=== PATIENT | male | born 2000 | race Caucasian/White ===

== ENCOUNTER 2022-11-10 20:02 | Observation (INO) ==
[2022-11-10] MEDS ORDERED: ONDANSETRON INJ 2 MG/ML 2 ML VIAL IV STA ×2 (20:20→22:00)
--- NOTE | 2022-11-10 20:24 | Emergency Department Note ---
Impression & Plan Complaint of paresthesia, Abdominal pain, Vomiting ED Provider Note NAME: JUHI ALEXANDRA AGE: 22 SEX: M : 2000 ARRIVES VIA: Walk-In INFORMANT: Patient ED PROVIDER(S): Cristopher Lomas DO CHIEF COMPLAINT: blurry vision, paraesthesia and vomiting HPI: Patient is a 22-year-old male with no significant past medical history the presents the ER for blurry vision and paresthesias referred in by [facility]. He notes today some around 3:00 he started having paresthesias on the palmar surface of his arms. He was initially on the palmar surface of his left arm and then went to his right arm and then he had on his left torso. This lasted for 2 minutes at a time. With this he had associated some blurry vision which was present for about an hour. He denies any headache or neck pain. He was lifting prior to this when this occurred. No chest pain or shortness of breath. He did have an episode of nausea and vomiting. No dysuria, urgency, or frequency. He denies any true numbness but had paresthesias in his upper extremities and torso. He has never had this before. He notes everything has completely resolved at this time. No other exacerbating or remitting factors. PAST MEDICAL HISTORY:See Below PAST SURGICAL HISTORY:See Below FAMILY HISTORY:See Below SOCIAL HISTORY:See Below HOME MEDICATIONS:See Below ALLERGIES:See Below VITALS:See Below PHYSICAL EXAMINATION: GENERAL: Sitting up in bed, alert, well appearing, well nourished, no distress, non-toxic EYE EXAM: normal conjunctiva. PERRL and EOM's intact. OROPHARYNX: no exudate, no erythema, lips, buccal mucosa, and tongue normal and mucous membranes are moist NECK: supple, no nuchal rigidity, no adenopathy, non-tender LUNGS: Clear to auscultation. Normal chest wall mechanics HEART: no murmurs, S1 normal and S2 normal ABDOMEN: abdomen soft, non-tender, normo-active bowel sounds, no masses, no rebound or guarding. BACK: Back is symmetrical on inspection and there is no deformity, no midline tenderness, no CVA tenderness. UPPER EXTREMITIES: upper extremities are grossly normal. LOWER EXTREMITIES: No pitting edema. NEURO EXAM: Normal sensorium, cranial nerves II-XII intact, normal speech, no weakness of arms, no weakness of legs. No drift. Finger to nose intact. Gross sensation intact. [id number] intact. Rapid alternating movements of upper extremities intact. MEDICAL DECISION MAKING: Patient is a 22-year-old male who presents to the ER initially for paresthesias which were migratory from the left arm on the palmar side to the right arm and elbow on the left torso consequently came in with some blurry vision. He denied any headache. No neck pain. No chest pain or shortness of breath. He did have 1 episode of nausea and vomiting prior to coming in. No other complaints at this time. He does note that he was drinking a fair amount of alcohol last night and consequently drank about a gallon of water today. CTAs of the head and neck were obtained and unremarkable. The blurry vision and paresthesias have abated. He has no chest pain or shortness of breath. During examination he started to have persistent vomiting. He denies any belly pain. He was given Zofran 4 mg x 2 this was followed by IV Reglan and Phenergan. He became slightly confused after the Phenergan. He is oriented to person but confused to the year. He was given IV fluids due to the elevated CK. CT abdomen pelvis was then obtained and was unremarkable. Discussed with dad who is at bedside in regards to him being slightly confused at this point. Do favor its best to watch him overnight on hospital and consequently discussed with Dr. Camden Mejia for further evaluation. No signs of meningitis or encephalitis on exam. external records were reviewed. Triage Nursing notes reviewed. Limited review of prior medical records performed Vital Signs: reviewed and remarkable for no significant abnormalities Differential diagnosis: Differential Diagnosis includes but is not limited to ischemic Stroke, hemorrhagic stroke, bells palsy, mass, neoplasm, migraine headache, seizure, subarachnoid hemorrhage, TIA, and transient global amnesia. ER treatment provided: See below Diagnostics interpreted by me include EKG and cardiac monitoring as listed below: -Cardiac Monitoring: An order was placed for continuous cardiac monitoring. The monitor shows a rate of 80 with sinus rhythm. -ECG: none -Laboratory studies:Interpreted by me as stated above in MDM and shown below. Imaging studies: Xrays: As interpreted by me: Portable AP upright 1 view chest unremarkable CTs show: CT angios of the head and neck were negative CT Abdo pelvis is unremarkable Consultation(s): Discussed with Dr. Camden Mejia for further evaluation Procedures:none Critical Care: None Past Med/Surg History Social History Smoking Status: Current every day smoker Preferred Language: Burmese Feels Safe at Home: Yes Allergies Allergies Allergy/AdvReac Type Severity Reaction Status Date / Time No Known Allergies Allergy Verified 11/10/22 20:24 Home Meds Previous Rx's Medication Instructions Recorded ondansetron 4 mg disintegrating 4 mg PO Q8H PRN nausea and 11/11/22 tablet vomiting 5 days #15 tabs Results & Data (ED) Vital Signs Vital Signs - 24 hr 11/10/22 20:05 11/11/22 00:50 11/10/22 22:30 Temperature 35.9 C L Temperature Source Temporal Artery Scan Pulse Rate 75 Pulse Rate [Finger] 82 72 Respiratory Rate 18 18 20 Respiratory Depth Normal Blood Pressure 129/70 Blood Pressure [Right Arm] 112/55 L 109/49 L Blood Pressure Mean 89 Blood Pressure Mean [Right Arm] 74 69 Pulse Oximetry 100 99 97 Oxygen Delivery Method Room Air Room Air Room Air Sepsis Recent Fever Within 48 Hours No Sepsis New/Unexplained Change in Mental Status N/A Sepsis Action Taken by Nursing No Action Required Laboratory Data 11/10/22 20:39 11/10/22 20:39 Lab Results 11/10/22 11/10/22 11/10/22 Range/Units 20:27 20:39 20:39 WBC 9.92 (4.8-10.8) K/ul RBC 5.17 (4.63-6.08) M/uL Hgb 15.4 (14.0-18.0) g/dl Hct 45.2 (40.1-51.0) % MCV 87.4 (80.0-100.0) fL MCH 29.8 (25.0-34.0) pg MCHC 34.1 (32.0-36.0) g/dL RDW Std Deviation 41.6 (36.4-46.3) fL RDW Coeff of Rell 12.9 (11.5-14.5) % Plt Count 252 (130-400) K/uL MPV 9.8 (9.4-12.4) fL Immature Gran % (Auto) 0.5 % Neut % (Auto) 68.9 % Lymph % (Auto) 24.2 % [place] % (Auto) 5.5 % Eos % (Auto) 0.5 % Baso % (Auto) 0.4 % Neut # (Auto) 6.83 H (1.4-6.5) K/uL Lymph # (Auto) 2.40 (1.2-3.4) K/uL [place] # (Auto) 0.55 (0.24-0.82) K/uL Eos # (Auto) 0.05 (0-0.50) K/uL Baso # (Auto) 0.04 (0-0.2) K/uL Immature Gran # (Auto) 0.05 H (0.00-0.02) K/uL PT 11.9 (9.0-12.0) Seconds INR 1.1 (0.9-1.1) APTT 25.0 (21.0-31.0) Seconds PTT Ratio 0.9 Sodium (136-145) mmol/L Potassium (3.5-5.1) mmol/L Chloride (98-107) mmol/L Carbon Dioxide (21-32) mmol/L Anion Gap (3-11) BUN (6-23) mg/dl Creatinine (0.6-1.4) mg/dl Est Cr Clr Drug Dosing ml/min Est GFR ( Amer) ml/min Est GFR (Non-Af Amer) ml/min BUN/Creatinine Ratio (10-20) Glucose (70-99(Fasting)) mg/dl POC Glucose 125 H (70-99) mg/dl Calcium (8.5-10.1) mg/dl Magnesium (1.7-2.4) mg/dl Total Bilirubin (0.2-1.0) mg/dl AST (13-39) U/L ALT (7-52) U/L Alkaline Phosphatase (34-104) U/L Total Creatine Kinase (30-223) U/L Troponin I High Sens (0-20) pg/ml Total Protein (6.0-8.3) gm/dl Albumin (3.4-5.0) gm/dl Globulin (2.5-4.0) gm/dl Albumin/Globulin Ratio (0.9-2) SARS-CoV-2, RNA, NAAT (NEGATIVE) 11/10/22 11/10/22 11/11/22 Range/Units 20:39 20:39 00:36 WBC (4.8-10.8) K/ul RBC (4.63-6.08) M/uL Hgb (14.0-18.0) g/dl Hct (40.1-51.0) % MCV (80.0-100.0) fL MCH (25.0-34.0) pg MCHC (32.0-36.0) g/dL RDW Std Deviation (36.4-46.3) fL RDW Coeff of Rell (11.5-14.5) % Plt Count (130-400) K/uL MPV (9.4-12.4) fL Immature Gran % (Auto) % Neut % (Auto) % Lymph % (Auto) % [place] % (Auto) % Eos % (Auto) % Baso % (Auto) % Neut # (Auto) (1.4-6.5) K/uL Lymph # (Auto) (1.2-3.4) K/uL [place] # (Auto) (0.24-0.82) K/uL Eos # (Auto) (0-0.50) K/uL Baso # (Auto) (0-0.2) K/uL Immature Gran # (Auto) (0.00-0.02) K/uL PT (9.0-12.0) Seconds INR (0.9-1.1) APTT (21.0-31.0) Seconds PTT Ratio Sodium 139 (136-145) mmol/L Potassium 3.5 (3.5-5.1) mmol/L Chloride 103 (98-107) mmol/L Carbon Dioxide 26 (21-32) mmol/L Anion Gap 10 (3-11) BUN 20 (6-23) mg/dl Creatinine 0.88 (0.6-1.4) mg/dl Est Cr Clr Drug Dosing 145.7 ml/min Est GFR ( Amer) 142.3 ml/min Est GFR (Non-Af Amer) 122.8 ml/min BUN/Creatinine Ratio 22.7 H (10-20) Glucose 141 H (70-99(Fasting)) mg/dl POC Glucose (70-99) mg/dl Calcium 9.0 (8.5-10.1) mg/dl Magnesium 1.9 (1.7-2.4) mg/dl Total Bilirubin 0.6 (0.2-1.0) mg/dl AST 35 (13-39) U/L ALT 27 (7-52) U/L Alkaline Phosphatase 139 H (34-104) U/L Total Creatine Kinase 571 H Cancelled (30-223) U/L Troponin I High Sens 4.1 (0-20) pg/ml Total Protein 7.0 (6.0-8.3) gm/dl Albumin 4.3 (3.4-5.0) gm/dl Globulin 2.7 (2.5-4.0) gm/dl Albumin/Globulin Ratio 1.6 (0.9-2) SARS-CoV-2, RNA, NAAT NEGATIVE (NEGATIVE) Administered Medications Discontinued Medications Sodium Chloride (Nss 1000ml) 2,000 mls @ 999 mls/hr IV .Q2H1M ONE Stop: 11/10/22 23:56 Last Infusion: 11/11/22 00:54 Dose: 0 mls/hr Documented By: Admin: 11/10/22 22:16 Dose: 999 mls/hr Documented By: RICO Promethazine HCl (Phenergan) 25 mg in 51 mls @ 204 mls/hr IV NOW STA Stop: 11/10/22 23:06 Last Infusion: 11/11/22 00:54 Dose: 0 mls/hr Documented By: Admin: 11/10/22 23:03 Dose: 204 mls/hr Documented By: RICO Ioversol (Optiray 320 500ml) 117 ml IV ONCE ONE Stop: 11/10/22 20:44 Last Admin: 11/10/22 20:43 Dose: 117 ml Documented By: ARCENIO Ioversol (Optiray 350 100ml) 89 ml IV ONCE ONE Stop: 11/10/22 23:37 Last Admin: 11/10/22 23:37 Dose: 89 ml Documented By: ARCENIO Metoclopramide HCl (Metoclopramide Hcl Inj 5 Mg/Ml 2 Ml Vial) 10 mg IV NOW STA Stop: 11/10/22 22:27 Last Admin: 11/10/22 22:29 Dose: 10 mg Documented By: RAJ Ondansetron HCl (Ondansetron Inj 2 Mg/Ml 2 Ml Vial) 4 mg IV NOW STA Stop: 01/21/23 20:21 Last Admin: 11/10/22 20:35 Dose: 4 mg Documented By: RICO Ondansetron HCl (Ondansetron Inj 2 Mg/Ml 2 Ml Vial) 4 mg IV NOW STA Stop: 11/10/22 22:01 Last Admin: 11/10/22 22:16 Dose: 4 mg Documented By: RICO Imaging Data Radiologist's Impression: Chest X-Ray 11/10/22 20:20 XR chest 1V portable CLINICAL HISTORY: neuro deficit, acute stroke suspected TECHNIQUE: Single frontal radiograph of the chest was obtained. Comparison: None available at the time of this dictation. FINDINGS: No lines and tubes are seen. The cardiomediastinal silhouette is normal. The lungs are clear. No evidence of pleural effusion or pneumothorax. IMPRESSION: No acute chest disease. ACT 112: Negative or not required by law. Electronically signed by: Vic Esqueda M.D. 11/10/2022 8:[address] 11/10/22 20:20 CT angio head w con, CT head/brain wo con, CT angio neck with con CLINICAL HISTORY: neuro deficit, acute stroke suspected TECHNIQUE: Contiguous axial CT images of the head were acquired from the base of the skull to the vertex without intravenous contrast administration. CT angiography of the head and neck was performed following intravenous administration of iodinated contrast. Coronal and sagittal MIPS were obtained from the axial data set and were submitted for review. Automated dose lowering techniques and/or adjustment according to patient size were utilized for this examination. All measurements were calculated based on NASCET criteria. Comparison: None available at the time of this dictation. FINDINGS: CT head: There is no acute intracranial hemorrhage or evidence of acute territorial infarction. No shift of the midline structures, mass effect, or extra-axial abnormalities are shown. Lungs and soft tissues are unremarkable. CTA Neck: A 3 vessel aortic arch is shown. There is no significant atherosclerotic plaque in the aortic arch or the origins of the innominate, left common carotid, and left subclavian arteries. The common carotid, external carotid, cervical segments of the internal carotid arteries, and the cervical segments of the vertebral arteries are patent without hemodynamically significant stenosis. The left vertebral artery is dominant. CTA Head: The anterior and posterior cerebral circulations are patent. origin of the right posterior cerebral artery is seen. IMPRESSION: 1. No acute intracranial hemorrhage, evidence of acute territorial infarction, or other acute intracranial disease process. 2. No occlusion, hemodynamically significant stenosis, or dissection in the major cervical arteries. 3. No occlusion, hemodynamically significant stenosis, aneurysm, dissection, or arteriovenous malformation in the major intracranial arteries. Assessment of stenosis of the internal carotid arteries is based on NASCET criteria. ACT 112: Negative or not required by law. Electronically signed by: Vic Esqueda M.D. 11/10/2022 9:10 PM Head CTA 11/10/22 20:20 CT angio head w con, CT head/brain wo con, CT angio neck with con CLINICAL HISTORY: neuro deficit, acute stroke suspected TECHNIQUE: Contiguous axial CT images of the head were acquired from the base of the skull to the vertex without intravenous contrast administration. CT angiography of the head and neck was performed following intravenous administration of iodinated contrast. Coronal and sagittal MIPS were obtained from the axial data set and were submitted for review. Automated dose lowering techniques and/or adjustment according to patient size were utilized for this examination. All measurements were calculated based on NASCET criteria. Comparison: None available at the time of this dictation. FINDINGS: CT head: There is no acute intracranial hemorrhage or evidence of acute territorial infarction. No shift of the midline structures, mass effect, or extra-axial abnormalities are shown. Lungs and soft tissues are unremarkable. CTA Neck: A 3 vessel aortic arch is shown. There is no significant atherosclerotic plaque in the aortic arch or the origins of the innominate, left common carotid, and left subclavian arteries. The common carotid, external carotid, cervical segments of the internal carotid arteries, and the cervical segments of the vertebral arteries are patent without hemodynamically significant stenosis. The left vertebral artery is dominant. CTA Head: The anterior and posterior cerebral circulations are patent. origin of the right posterior cerebral artery is seen. IMPRESSION: 1. No acute intracranial hemorrhage, evidence of acute territorial infarction, or other acute intracranial disease process. 2. No occlusion, hemodynamically significant stenosis, or dissection in the major cervical arteries. 3. No occlusion, hemodynamically significant stenosis, aneurysm, dissection, or arteriovenous malformation in the major intracranial arteries. Assessment of stenosis of the internal carotid arteries is based on NASCET criteria. ACT 112: Negative or not required by law. Electronically signed by: Vic Esqueda M.D. 11/10/2022 9:10 PM Neck CTA 11/10/22 20:20 CT angio head w con, CT head/brain wo con, CT angio neck with con CLINICAL HISTORY: neuro deficit, acute stroke suspected TECHNIQUE: Contiguous axial CT images of the head were acquired from the base of the skull to the vertex without intravenous contrast administration. CT angiography of the head and neck was performed following intravenous administration of iodinated contrast. Coronal and sagittal MIPS were obtained from the axial data set and were submitted for review. Automated dose lowering techniques and/or adjustment according to patient size were utilized for this examination. All measurements were calculated based on NASCET criteria. Comparison: None available at the time of this dictation. FINDINGS: CT head: There is no acute intracranial hemorrhage or evidence of acute territorial infarction. No shift of the midline structures, mass effect, or extra-axial abnormalities are shown. Lungs and soft tissues are unremarkable. CTA Neck: A 3 vessel aortic arch is shown. There is no significant atherosclerotic plaque in the aortic arch or the origins of the innominate, left common carotid, and left subclavian arteries. The common carotid, external carotid, cervical segments of the internal carotid arteries, and the cervical segments of the vertebral arteries are patent without hemodynamically significant stenosis. The left vertebral artery is dominant. CTA Head: The anterior and posterior cerebral circulations are patent. origin of the right posterior cerebral artery is seen. IMPRESSION: 1. No acute intracranial hemorrhage, evidence of acute territorial infarction, or other acute intracranial disease process. 2. No occlusion, hemodynamically significant stenosis, or dissection in the major cervical arteries. 3. No occlusion, hemodynamically significant stenosis, aneurysm, dissection, or arteriovenous malformation in the major intracranial arteries. Assessment of stenosis of the internal carotid arteries is based on NASCET criteria. ACT 112: Negative or not required by law. Electronically signed by: Vic Esqueda M.D. 11/10/2022 9:10 PM Discharge Plan Visit Data Chief Complaint: Neuro Symptoms/Deficit Stated Complaint: BLURRY VISION, LEFT SIDED WEAKNESS, NUMBNESS ED Provider: Cristopher Lomas Discharge Problem: Complaint of paresthesia, Abdominal pain, Vomiting Patient Disposition: Home - Self-Care Discharge Instructions Michael/Other Patient Handouts: ED Paraesthesias, ED [facility] Vomiting Activity Restrictions/Additional Instructions: Please follow up with your primary care doctor with in the next 24 hours. Any worsening of your symptoms, please return to the ED immediately. This includes any fevers greater than 100.4, worsening pain, chest pain, shortness breath, persistent nausea, vomiting, unable to eat or drink, or any other concerning signs or symptoms from your standpoint. You were given medications during this visit that will inhibit your ability to drive, operate machinery and work. Please do NOT drive, operate machinery, drink alcohol or work for the next 12hrs. You were found to have a blood pressure greater than 120 systolic over 90 diastolic. Due to the new Medicare guidelines, we are now recommending that you follow up with your primary care doctor in regards to this elevated blood pres sure. Please take Zofran as needed needed for nausea vomiting. Forms Stand Alone Forms: My [facility], Virtual Emergency Department, Important Visit Information Prescriptions Prescriptions: New ondansetron 4 mg tablet,disintegrating 4 mg PO Q8H PRN (Reason: nausea and vomiting) 5 Days Qty: 15 0RF Referrals Referrals: PCP,NO [Primary Care Provider] -
[2022-11-10] MEDS ORDERED: OPTIRAY 320 500ml IV ONE (20:43)
--- NOTE | 2022-11-10 20:51 | XRay Report ---
XR chest 1V portable CLINICAL HISTORY: neuro deficit, acute stroke suspected TECHNIQUE: Single frontal radiograph of the chest was obtained. Comparison: None available at the time of this dictation. FINDINGS: No lines and tubes are seen. The cardiomediastinal silhouette is normal. The lungs are clear. No evid ence of pleural effusion or pneumothorax. IMPRESSION: No acute chest disease. ACT 112: Negative or not required by law. Electronically signed by: Vic Esqueda M.D. 11/10/2022 8:49 PM
--- NOTE | 2022-11-10 21:12 | CT Scan Report ---
CT angio head w con, CT head/brain wo con, CT angio neck with con CLINICAL HISTORY: neuro deficit, acute stroke suspected TECHNIQUE: Contiguous axial CT images of the head were acquired from the base of the skull to the martinez isaura without intravenous contrast administration. CT angiography of the head and neck was performed f ollowing intravenous administration of iodinated contrast. Coronal and sagittal MIPS were obtained fr om the axial data set and were submitted for review. Automated dose lowering techniques and/or adjus tment according to patient size were utilized for this examination. All measurements were calculated based on NASCET criteria. Comparison: None available at the time of this dictation. FINDINGS: CT head: There is no acute intracranial hemorrhage or evidence of acute territorial infarction. No sh ift of the midline structures, mass effect, or extra-axial abnormalities are shown. Lungs and soft tissues are unremarkable. CTA Neck: A 3 vessel aortic arch is shown. There is no significant atherosclerotic plaque in the aor tic arch or the origins of the innominate, left common carotid, and left subclavian arteries. The c ommon carotid, external carotid, cervical segments of the internal carotid arteries, and the cervical segments of the vertebral arteries are patent without hemodynamically significant stenosis. The left vertebral artery is dominant. CTA Head: The anterior and posterior cerebral circulations are patent. origin of the right pos terior cerebral artery is seen. IMPRESSION: 1. No acute intracranial hemorrhage, evidence of acute territorial infarction, or other acute intrac ranial disease process. 2. No occlusion, hemodynamically significant stenosis, or dissection in the major cervical arteries. 3. No occlusion, hemodynamically significant stenosis, aneurysm, dissection, or arteriovenous malfor mation in the major intracranial arteries. Assessment of stenosis of the internal carotid arteries is based on NASCET criteria. ACT 112: Negative or not required by law. Electronically signed by: Vic Esqueda M.D. 11/10/2022 9:10 PM
[2022-11-10 21:16] LABS: Basophils # (auto) 0.04 K/uL (0-0.2); Basophils % (auto) 0.4 %; Eosinophils # (auto) 0.05 K/uL (0-0.50); Eosinophils % (auto) 0.5 %; Hematocrit (blood only) 45.2 % (40.1-51.0); Hemoglobin 15.4 g/dl (14.0-18.0); Immature Granulocytes # (auto) 0.05 K/uL (0.00-0.02); Immature Granulocytes % (auto) 0.5 %; Lymphocytes % (auto) 24.2 %; Mean Corpuscular Hemoglobin 29.8 pg (25.0-34.0); Mean Corpuscular Hgb Conc 34.1 g/dL (32.0-36.0); Mean Corpuscular Volume 87.4 fL (80.0-100.0); Mean Platelet Volume 9.8 fL (9.4-12.4); Monocytes # (auto) 0.55 K/uL (0.24-0.82); Monocytes % (auto) 5.5 %; Neutrophils # (auto) 6.83 K/uL (1.4-6.5); Neutrophils % (auto) 68.9 %; Platelet Count 252 K/uL (130-400); RDW Coefficient of Variation 12.9 % (11.5-14.5); RDW Standard Deviation 41.6 fL (36.4-46.3); Red Blood Count 5.17 M/uL (4.63-6.08); White Blood Count 9.92 K/ul (4.8-10.8)
[2022-11-10 21:17] LABS: INR 1.1 (0.9-1.1); Partial Thromboplastin Ratio 0.9; Prothrombin Time 11.9 Seconds (9.0-12.0)
[2022-11-10 21:36] LABS: Troponin I High Sensitivity 4.1 pg/ml (0-20)
[2022-11-10 21:50] LABS: Albumin Globulin Ratio 1.6 (0.9-2); Albumin Level 4.3 gm/dl (3.4-5.0); BUN Creatinine Ratio 22.7 (10-20); Bilirubin,Total 0.6 mg/dl (0.2-1.0); Creatinine Clr Calc Pharmacy 145.7 ml/min; Est GFR (African American) 142.3 ml/min; Est GFR (Non-African American) 122.8 ml/min; Globulin 2.7 gm/dl (2.5-4.0); Magnesium 1.9 mg/dl (1.7-2.4); Potassium 3.5 mmol/L (3.5-5.1)
[2022-11-10] MEDS ORDERED: SODIUM CHLORIDE 0.9% 1000ML 2,000 ML IV ONE (21:56)
[2022-11-10] MEDS ORDERED: METOCLOPRAMIDE HCL INJ 5 MG/ML 2 ML VIAL IV STA (22:26)
[2022-11-10] MEDS ORDERED: PROMETHAZINE 25 MG/51 ML BAG IV STA (22:52)
[2022-11-10] MEDS ORDERED: OPTIRAY 350 100ml IV ONE (23:36)
--- NOTE | 2022-11-11 00:53 | History & Physical Report ---
Date of Service November 11, 2022 Assessment & Plan (1) Altered mental status, unspecified: Plan: 22-year-old man here with bilateral upper extremity paresthesias, nausea and admitted for acutely altered mental status of unknown etiology. Altered mental status/UE paresthesias -Unclear etiology. Toxic consumption/ingestion likeliest (cholinergic toxicity?). Low suspicion for CVA, ischemic or otherwise, given bilateral presentation and physical exam. 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 Neurological symptoms may point to an initial presentation of MS, though patient's neurological deficits had resolved prior to presentation to ED so unable to assess directly. -CTA head/neck, CT abdomen/pelvis negative for acute/abnormal findings. UDS negative. UA: 2+ ketonuria, trace glucosuria. -Admitted to [facility] [place] with telemetry * MRI brain pending. Consider LP if MRI findings noncontributory. * mIVF LR@125 mL/h * Repleted Mg, K+ to 2 and 4 respectively. Trend. Elevated creatine kinase -Likely due to weightlifting. Low concern for rhabdomyolysis. * Maintenance LR IVF, as above * Trend Hyperglycemia -Patient nauseous since symptomatic onset. Blood sugar 141 despite having been n.p.o. since arrival to ED. Reported blurry vision, abdominal pain, 2+ ketonuria, trace glucosuria might indicate a possible diagnosis of diabetes mellitus. * A.M. Hemoglobin A1c. Vomiting -No ED note, and dad report vomiting, patient only appears to be dry heaving. UDS screen however, negative for marijuana. * IV Zofran 4 mg every 6 hours as needed Code: Full code Dispo: Med-Surg telemetry FEN/GI: NPO DVT Prophylaxis: PT/OT: No Consults: None (2) Abdominal pain: (3) Complaint of paresthesia: (4) Vomiting: History of Present Illness Primary Care Provider: NO PCP Favio is a 22-year-old male with no significant past medical history who presents in the ER for blurry vision and paresthesias referred to the emergency room by kamala aCon. He reports that around 3 PM, he started having paresthesias on the palmar surface of his arms. He was initially on the palmar surface of his left arm and then went to his right arm and then he had on his left torso. Initial episode lasted 2 minutes. He also had associated some blurry vision which lasted about an hour. He denies headache or neck pain. He says was lifting when this occurred. Denies chest pain or shortness of breath. He did have an episode of nausea and vomiting. Denies dysuria, urgency, or frequency. Further denies any true numbness but had paresthesias in his upper extremities and torso. He has never had this before. No other exacerbating or remitting factors. In the ED, he received 2 doses of IV Zofran, Phenergan 25 mg x1, and metoclopramide x1 for nausea. Labs were unremarkable, save for an elevated alkaline phosphatase of 139, and CK of 571. Lyme serology was negative. Head CTA, neck CTA were both negative. UA, UDS were both ordered but patient has been unable to give urine at the time of this note. On admission, patient appears drowsy and unable to provide/corroborate any of HPI. Dad, who is at bedside, provides HPI given to him by his son. Son apparently called at noon with upper extremity paresthesia symptoms. Dad adds that son has been "burning the candle at both ends, with a job on the farm and attending classes. He also reports that his son is into weightlifting but cannot confirm if he uses supplements other than what one would find at a pharmacy. He reports that his son's behavior at the moment is not his baseline. Patient did not answer any direct questions asked but twice retreated to the bathroom to vomit, which he was unable to. Allergies Allergy/AdvReac Type Severity Reaction Status Date / Time No Known Allergies Allergy Verified 11/10/22 20:24 Home Medications Medication Instructions Recorded Confirmed Type ondansetron 4 mg disintegrating 4 mg PO Q8H PRN nausea and 11/11/22 Rx tablet vomiting 5 days #15 tabs Past Med/Surg History Social History Smoking Status: Current every day smoker Preferred Language: Urdu Communication Ability: Effective Blending Supervisor Required: No Beliefs That Will Affect Care: None Feels Safe at Home: Yes Safety Concerns: Feels Safe At This Time Assistive Devices: None Review of Systems Review of Systems: All systems reviewed & are unremarkable except as noted in HPI & below Physical Exam Physical Exam: General: Drowsy, intermittently awake young man who is in no acute distress HEENT: PERRLA. Normal conjunctiva, anicteric sclera. Oropharynx normal. Respiratory: Normal respiratory effort, CTA BL. Cardiovascular: RRR without murmurs, gallops, or rubs. No edema. GI: Soft abdomen with normal bowel sounds heard on auscultation. Nontender x4 quadrants. Patient dry heaving without emesis. Neuro: Awake. Drowsy but irritable. Patient ambulated to the bathroom without assistance or apparent limitations. No nuchal rigidity. Results & Data Results & Data ([facility]) Vital Signs (Past 12 Hours) Vital Signs Temp Pulse Pulse Resp BP BP Pulse Ox 11/10/22 22:30 72 20 109/49 L 97 11/10/22 20:05 35.9 C L 75 18 129/70 100 O2 Del Method 11/10/22 22:30 Room Air 11/10/22 20:05 Room Air Supervising Physician Co-Signing Physician Notes Attending addendum: I have physically seen this patient, have supervised the medical residents activities, and agree with the H&P unless as otherwise noted. Assessment and Plan: Neurologic symptoms of blurry VA, bilateral arm paresthesias and left torso paresthesias/altered mental status- Work-up in the emergency department was negative: CT head, CTA head and neck. Urine drug screen was added which is negative. Order MRI brain to assess for possible MS Ordered Lyme test with results pending Possible heavy metal screen and other less common form related exposure encephalopathies can be worked up pending patient's improvement status overnight Consult neurology in a.m. if symptoms persistent and/or abnormal testing Admit to monitored bed for observation Resident Activity Tracking Resident Involvement: Resident Care Provided Care Provided: Adult [facility]
[2022-11-11 01:11] LABS: Lyme Ab IgG w/WB Rflx Negative (Negative); Lyme Ab IgM w/WB Rflx Negative (Negative)
[2022-11-11 01:27] LABS: Appearance Urine Cloudy (Clear); Bacteria Urine Automated Negative (Negative); Bilirubin Urine Negative (Negative); Blood Urine Negative (Negative); Cast Urine Automated 0 /lpf (0-5); Color Urine Yellow; Epithelial Cell Urine Auto 0-5 /lpf (0-5); Glucose Urine UA Trace (Negative); Ketones Urine 2+ (Negative); Leukocyte Esterase Urine Negative (Negative); Nitrite Urine Negative (Negative); Protein Urine Negative (Negative); RBC Urine Automated 0-4 /hpf (0-4); Specific Gravity Urine > 1.045 (1.000-1.030); Urobilinogen Urine Negative (Negative); WBC Urine Automated 0 /hpf (0-5)
[2022-11-11] MEDS ORDERED: LACTATED RINGER'S 1,000 ML IV ONE (01:40)
[2022-11-11 02:09] LABS: Amphetamines+Metham, Urine Neg (Neg); Barbiturates, Urine Neg (Neg); Benzodiazepine, Urine Neg (Neg); Cocaine, Urine Neg (Neg); MDMA (Ecstacy), Urine Neg (Neg); Methadone, Urine Neg (Neg); Opiate, Urine Neg (Neg); Phencyclidine, Urine Neg (Neg)
[2022-11-11] MEDS ORDERED: LACTATED RINGER'S 1,000 ML IV SCH (03:00)
[2022-11-11] MEDS ORDERED: ONDANSETRON INJ 2 MG/ML 2 ML VIAL IV PRN (03:06)
[2022-11-11] MEDS: MAGNESIUM SULFATE / D5W 1 GM/100 ML BAG IV SCH ×2 (03:27→05:16)
[2022-11-11] MEDS: POTASSIUM CHLORIDE / WTR 10 MEQ/100 ML PLCT IV SCH ×4 (03:32→06:46)
[2022-11-11 06:33] LABS: Basophils # (auto) 0.02 K/uL (0-0.2); Basophils % (auto) 0.2 %; Hematocrit (blood only) 40.9 % (40.1-51.0); Hemoglobin 14.1 g/dl (14.0-18.0); Immature Granulocytes # (auto) 0.04 K/uL (0.00-0.02); Immature Granulocytes % (auto) 0.4 %; Lymphocytes # (auto) 0.87 K/uL (1.2-3.4); Lymphocytes % (auto) 7.7 %; Mean Corpuscular Hemoglobin 30.3 pg (25.0-34.0); Mean Corpuscular Hgb Conc 34.5 g/dL (32.0-36.0); Mean Corpuscular Volume 87.8 fL (80.0-100.0); Mean Platelet Volume 9.6 fL (9.4-12.4); Monocytes # (auto) 0.29 K/uL (0.24-0.82); Monocytes % (auto) 2.6 %; Neutrophils # (auto) 10.02 K/uL (1.4-6.5); Neutrophils % (auto) 89.1 %; Platelet Count 209 K/uL (130-400); RDW Standard Deviation 41.9 fL (36.4-46.3); Red Blood Count 4.66 M/uL (4.63-6.08); White Blood Count 11.24 K/ul (4.8-10.8)
--- NOTE | 2022-11-11 07:29 | Hospitalist Progress Note ---
Date of Service November 11, 2022 Assessment & Plan (1) Altered mental status, unspecified: Plan: 22-year-old man here with acute-onset torso/UE paresthesias, vision disturbances, and nausea in the setting of known binge drinking night prior with subsequent weight lifting morning after. Etiology is unclear, work-up is ongoing. May relate to hydration. 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 No known chemical exposure or pesticide use. -- No FHX of demyelinating disease known to him -- A1c pending. Elevated BSGs while here noted and same with trace glucosuria and 2+ ketonuria. - Abrupt onset after heavy EtOH consumption and working out in setting of ketonuria could point towards dehydration and mild non-gap ketoacidosis atop ?undiagnosed DM. A1c pending. - Agree with MRI - pending - Continue ample hydration and lyte repletion as indicated Elevated creatine kinase - Due to weight lifting in setting of dehydration. Minimally elevated, <1000. IVF ongoing for the above issue. Hyperglycemia -Patient nauseous since symptomatic onset. Blood sugar 141 despite having been n.p.o. since arrival to ED. Reported blurry vision, abdominal pain, 2+ ketonuria, trace glucosuria might indicate insulin pathology -Await A1c -No indication for treatment at this time Vomiting -Vomiting after symptom development. Possibly related to above process. CT-A/P negative. -Zofran PRN Code: Full code Dispo: Med-Surg telemetry FEN/GI: NPO DVT Prophylaxis: PT/OT: No Consults: None (2) Abdominal pain: (3) Complaint of paresthesia: (4) Vomiting: Admission and Anticipated Discharge Date Admission Date: November 11, 2022 Subjective Emergency room notes and history from H&P reviewed. Patient was reportedly lifting yesterday after drinking a significant amount of alcohol the night prior, 7+ beers. Not drinking regularly. He drink about a gallon of water yesterday prior to lifting. He developed paresthesias that were migratory from the left arm on the palmar side of the right arm to the elbow, into the left torso. He had blurry vision that developed subsequently thereafter. He developed nausea and vomiting. His urinalysis did demonstrates concentration. No known exposure to lead- old barn does have 'old paint' but doesn't regularly have interaction with this and hasn't been repainting, etc. +well water. No chemical exposures. No pesticides Dad apparently said his son's behavior was not baseline. 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 MAR reviewed, since arrival patient has received ondansetron x2, metoclopramide, promethazine, magnesium. Review of Systems Review of Systems: as per HPI Physical Exam Physical Exam: General: 22-year old male who is alert, oriented, and appears in no acute distress. HEENT: NCAT. - Eyes - Sclera are white, anicteric, and without injection. - Mouth - MMM - Neck - supple, no appreciable JVD Cardiac: Normal rate and regular rhythm; S1 and S2 present with no murmurs, rubs, or gallops. Pulmonary: Good respiratory effort with symmetric expansion of the chest. No use of accessory muscles. Lungs were clear to auscultation bilaterally with no crackles or wheezes. Abdominal: Normoactive bowel sounds. Abdomen was soft, nondistended, and non- tender to palpation. Extremities: Upper and lower extremities are warm and well perfused. [] peripheral edema in the lower extremities bilaterally Psych: Well-developed, well-nourished, appropriately dressed for occasion. Behavior is cooperative and appropriate. Affect is WNL. Insight is appropriate. Neuro: - Cranial Nerves: CN I, IX, XIII, and X - not assessed. II - PERRL. III/IV/ - EOMs WNL. No nystagmus. V - Facial sensation in tact in all three divisions; jaw opening WNL. VII - Patient is able to smile symmetrically and keep eyes close against resistance. IX - Soft palate raises equally and appropriately while saying "ah." XI - Patient is able to shrug shoulders against resistance. XII - patient is able to stick out tongue and deviate from [id number] appropriately. - Motor: UE - Finger, wrist, elbow, and shoulder strength is 5/5 bilaterally. LE - Hip, knee, and ankle strength is 5/5 bilaterally. - Sensation: UE and LE sensation to light touch is grossly intact bilaterally. Results & Data Results & Data ([facility]) Vital Signs (Past 12 Hours) Vital Signs Temp Pulse Pulse Resp BP BP Pulse Ox 11/11/22 07:14 36.8 C 77 16 119/68 97 11/11/22 04:34 136/65 11/11/22 02:37 37.6 C H 78 16 95/60 L 95 11/10/22 22:30 72 20 109/49 L 97 11/11/22 00:50 82 18 112/55 L 99 11/10/22 20:05 35.9 C L 75 18 129/70 100 O2 Del Method 11/11/22 07:14 Room Air 11/11/22 04:34 11/11/22 02:37 Room Air 11/10/22 22:30 Room Air 11/11/22 00:50 Room Air 11/10/22 20:05 Room Air Resident Activity Tracking Resident Involvement: Resident Care Provided Care Provided: Adult Hospital Medicine
--- NOTE | 2022-11-11 07:50 | CT Scan Report ---
ABDOMEN AND PELVIS CT WITH IV CONTRAST CT DOSE: 787.60 mGy.cm HISTORY: Acute generalized abdominal pain diffuse abd pain TECHNIQUE: Multiaxial CT images of the abdomen and pelvis were performed following the IV administrat ion of 89 cc of Optiray, A dose lowering technique was utilized adhering to the principles of ALARA. COMPARISON STUDY: None. FINDINGS: Patient was reportedly combative throughout the exam. The study is markedly limited seconda ry to the aforementioned motion artifact. The visualized lung bases are clear. The visualized portion s of the liver, spleen, gallbladder, pancreas, kidneys, and adrenal glands are within normal limits. No bowel wall thickening or obstruction identified. The visualized appendix appears noninflamed. Mild wall thickening of the transverse colon is likely secondary to partial distention. The pelvic struct ures are not well visualized. No acute fracture identified. IMPRESSION: The study is nearly nondiagnostic secondary to the patient's lack of cooperation and extensive motion artifact. Within the limitations of the exam, no acute abnormality identified. ACT 112: Negative or not required by law. The above report was generated using voice recognition software. It may contain grammatical, syntax o r spelling errors. Electronically signed by: Salvador Rader M.D. 11/11/2022 7:48 AM
[2022-11-11 07:57] LABS: Potassium 4.2 mmol/L (3.5-5.1)
[2022-11-11 08:06] LABS: Alanine Aminotransferase 26 U/L (7-52); Albumin Globulin Ratio 1.8 (0.9-2); Albumin Level 4.1 gm/dl (3.4-5.0); Alkaline Phosphatase 129 U/L (34-104); Anion Gap 7 (3-11); Aspartate Aminotransferase 30 U/L (13-39); BUN Creatinine Ratio 14.3 (10-20); Bilirubin,Total 0.6 mg/dl (0.2-1.0); Blood Urea Nitrogen 11 mg/dl (6-23); Calcium 8.1 mg/dl (8.5-10.1); Carbon Dioxide 24 mmol/L (21-32); Chloride 105 mmol/L (98-107); Creatine Kinase 399 U/L (30-223); Creatinine Clr Calc Pharmacy 166.6 ml/min; Est GFR (African American) > 150.0 ml/min; Est GFR (Non-African American) 129.7 ml/min; Globulin 2.3 gm/dl (2.5-4.0); Glucose 158 mg/dl (70-99(Fasting)); Sodium 136 mmol/L (136-145); Total Protein 6.4 gm/dl (6.0-8.3)
[2022-11-11] MEDS ORDERED: GADOBUTROL 65ML VIAL IV ONE (10:10)
--- NOTE | 2022-11-11 10:50 | Electrocardiogram Report ---
Test Reason : Blood Pressure : / mmHG Vent. Rate : 065 BPM Atrial Rate : 065 BPM P-R Int : 168 ms QRS Dur : 096 ms QT Int : 406 ms P-R-T Axes : 068 090 060 degrees QTc Int : 422 ms Normal sinus rhythm Rightward axis ST elevation, consider early repolarization Borderline ECG No previous ECGs available Confirmed by Dick Hancock [id number]) on 11/11/2022 10:50:41 AM Referred By: REFERRED SELF Confirmed By:Dick Hancock
--- NOTE | 2022-11-11 11:20 | Magnetic Resonance Report ---
MR brain wo/w con HISTORY: 22 years-old Male AMS, UE paresthesias acutely altered mental status COMPARISON: Head CT November 10, 2022 TECHNIQUE: Multiple multisequence MRI of the brain was obtained both with and without the use of 8.2 cc Gadavist FINDINGS: No restricted diffusion. Midline structures appear unremarkable. No pathologic blooming artifact on t he T2 star series. Cerebral venous sinuses and major arterial flow voids appear patent. Skull, orbits and soft tissues are unremarkable. Mastoid air cells and paranasal sinuses are clear. No acute intracranial hemorrhage, midline shift, abnormal extra axial collection, hydrocephalus or in tracranial mass. No abnormal enhancement. Normal volume and signal of the brain parenchyma. IMPRESSION: Unremarkable exam. No abnormal enhancement. ACT 112: Negative or not required by law. The above report was generated using voice recognition software. It may contain grammatical, syntax o r spelling errors. Electronically signed by: Salvador Rader M.D. 11/11/2022 11:17 AM
--- NOTE | 2022-11-11 11:35 | Discharge Summary ---
Date of Service November 11, 2022 Admission HPI Per Admitting Provider Favio is a 22-year-old male with no significant past medical history who presents in the ER for blurry vision and paresthesias referred to the emergency room by [employer]. He reports that around 3 PM, he started having paresthesias on the palmar surface of his arms. He was initially on the palmar surface of his left arm and then went to his right arm and then he had on his left torso. Initial episode lasted 2 minutes. He also had associated some blurry vision which lasted about an hour. He denies headache or neck pain. He says was lifting when this occurred. Denies chest pain or shortness of breath. He did have an episode of nausea and vomiting. Denies dysuria, urgency, or frequency. Further denies any true numbness but had paresthesias in his upper extremities and torso. He has never had this before. No other exacerbating or remitting factors. In the ED, he received 2 doses of IV Zofran, Phenergan 25 mg x1, and metoclopramide x1 for nausea. Labs were unremarkable, save for an elevated alkaline phosphatase of 139, and CK of 571. Lyme serology was negative. Head CTA, neck CTA were both negative. UA, UDS were both ordered but patient has been unable to give urine at the time of this note. On admission, patient appears drowsy and unable to provide/corroborate any of HPI. Dad, who is at bedside, provides HPI given to him by his son. Son apparently called at noon with upper extremity paresthesia symptoms. Dad adds that son has been "burning the candle at both ends, with a job on the farm and attending classes. He also reports that his son is into weightlifting but cannot confirm if he uses supplements other than what one would find at a pharmacy. He reports that his son's behavior at the moment is not his baseline. Patient did not answer any direct questions asked but twice retreated to the bathroom to vomit, which he was unable to. Admission Exam Per Admitting Provider General: Drowsy, intermittently awake young man who is in no acute distress HEENT: PERRLA. Normal conjunctiva, anicteric sclera. Oropharynx normal. Respiratory: Normal respiratory effort, CTA BL. Cardiovascular: RRR without murmurs, gallops, or rubs. No edema. GI: Soft abdomen with normal bowel sounds heard on auscultation. Nontender x4 quadrants. Patient dry heaving without emesis. Neuro: Awake. Drowsy but irritable. Patient ambulated to the bathroom without assistance or apparent limitations. No nuchal rigidity. Principal Diagnosis paraesthesias, blurred vision, behavior change dehydration Discharge Exam General: 22-year old male who is alert, oriented, and appears in no acute distress. HEENT: NCAT. - Eyes - Sclera are white, anicteric, and without injection. - Mouth - MMM - Neck - supple, no appreciable JVD Cardiac: Normal rate and regular rhythm; S1 and S2 present with no murmurs, rubs, or gallops. Pulmonary: Good respiratory effort with symmetric expansion of the chest. No use of accessory muscles. Lungs were clear to auscultation bilaterally with no crackles or wheezes. Abdominal: Normoactive bowel sounds. Abdomen was soft, nondistended, and non- tender to palpation. Extremities: Upper and lower extremities are warm and well perfused. [] peripheral edema in the lower extremities bilaterally Psych: Well-developed, well-nourished, appropriately dressed for occasion. Behavior is cooperative and appropriate. Affect is WNL. Insight is appropriate. Neuro: - Cranial Nerves: CN I, IX, XIII, and X - not assessed. II - PERRL. III/IV/ - EOMs WNL. No nystagmus. V - Facial sensation in tact in all three divisions; jaw opening WNL. VII - Patient is able to smile symmetrically and keep eyes close against resistance. IX - Soft palate raises equally and appropriately while saying "ah." XI - Patient is able to shrug shoulders against resistance. XII - patient is able to stick out tongue and deviate from [id number] appropriately. - Motor: UE - Finger, wrist, elbow, and shoulder strength is 5/5 bilaterally. LE - Hip, knee, and ankle strength is 5/5 bilaterally. - Sensation: UE and LE sensation to light touch is grossly intact bilaterally. Discharge Data Allergies Allergy/AdvReac Type Severity Reaction Status Date / Time No Known Allergies Allergy Verified 11/10/22 20:24 Consultations 11/11/22 00:23 ED Decision to Admit Stat Ordered Studies 11/10/22 20:20 CT angio head w con Stat CT angio neck with con Stat CT head/brain wo con Stat IMPRESSION: 1. No acute intracranial hemorrhage, evidence of acute territorial infarction, or other acute intracranial disease process. 2. No occlusion, hemodynamically significant stenosis, or dissection in the major cervical arteries. 3. No occlusion, hemodynamically significant stenosis, aneurysm, dissection, or arteriovenous malformation in the major intracranial arteries. 11/10/22 22:52 CT Abd and Pelvis [CT abd pelvis IV con only] Stat IMPRESSION: The study is nearly nondiagnostic secondary to the patient's lack of cooperation and extensive motion artifact. Within the limitations of the exam, no acute abnormality identified. 11/11/22 02:40 MRI Brain [MR brain wo/w con] Stat IMPRESSION: Unremarkable exam. No abnormal enhancement. Hospital Course (1) Altered mental status, unspecified: 22-year-old man here with acute-onset torso/UE paresthesias, vision disturbances, and nausea in the setting of known binge drinking night prior with subsequent weight lifting morning after. Suspect his symptoms are centrally related to resolved, but previously mild, non-gap alcohol-induced ketoacidosis superimposed by dehydration given otherwise negative PHOTO RETOUCHER imaging and laboratory w/u. Diffuse UE/Torso Paraesthesias, Blurry Vision, Reported Abnormal Behavior/?AMS - Approx. ~several hours ([employer]) of transient numbness in UE/torso, bilateral, and an episode of blurry vision that lasted an hour with +nausea - Occurred approx. 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 No known chemical exposure or pesticide use. -- MRI Brain without evidence of demyelination -- A1c: FOLLOW UP required, A1c's are not run on weekends in-house - Abrupt onset after heavy EtOH consumption and working out in setting of concentrated urine and ketonuria points towards dehydration and possible mild, and now resolved, non-gap ketoacidosis. Also on the differential includes acephalgic complex migraine. - Set 3L fluid goal/day for the next several days Elevated creatine kinase - Due to weight lifting in setting of dehydration. Minimally elevated, <1000. IVF ongoing for the above issue. Vomiting -Vomiting after symptom development. Possibly related to above process. CT-A/P non-diagnostic secondary to motion, though no significant abnormalities Code: Full code Dispo: Med-Surg FEN/GI: NPO DVT Prophylaxis: Ambulate ad patricia (2) Abdominal pain: (3) Complaint of paresthesia: (4) Vomiting: Total Time Total Time Spent Total Time Spent (In Minutes): <30 Discharge Plan Discharge Items Patient Disposition: Home - Self-Care Reason For Visit: ABD PAIN, BILAT UE NUMBNNESS, AMS Discharge Diagnosis: paraesthesias, blurred vision, altered mental status dehydration Activity: Per Instructions section Non-emergency contact: Primary Care Provider Call non-emergency contact if: your symptoms worsen, your pain is concerning for you and your temperature is above 101 Follow-up/Referrals: PCP,NO [Primary Care Provider] - Diet: Regular Addtl Attending Provider Instructions: You were seen at [facility] for evaluation of numbness, blurred vision, and behavioral change. You underwent testing to determine the cause of your symptoms. Your CT and MRI scans of your brain did not show evidence of brain damage. Your labs suggested dehydration. Thankfully, your symptoms completely resolved on arrival, and continued to remain resolved with IV fluids. Primarily suspect your symptoms were related due to significant dehydration, possibly compounded by metabolic changes that occurred after alcoholic consumption and through your work-out the next day. It is imperative that you remain well hydrated, consuming at least 3L/day of fluids for days you are working out (excluding alcohol and caffeine). It is also very important to consume food before and after work-outs, as well as prior to consumption of alcohol to ensure the body has enough 'energy reserves.' Please limit alcohol consumption to ensure your body can regain energy and hydration stores. No medication changes were made while here. Please follow-up with your Primary Care Physician within 1 week to review this visit. We will reach out to the [facility] office beside the hospital to schedule you an appointment. In the interim, if you experience significant worsening in numbness/tingling, weakness, blurry vision, chest pain, shortness of breath, diffuse pain, or other worrisome symptoms, please report to the ER immediately for evaluation. It was a pleasure for caring for you while here and we wish you all the best in your recovery. Pending Studies at Discharge: No Stand-Alone Forms: My [facility], Smoking Cessation Medications and DC Order Prescriptions: New ondansetron 4 mg tablet,disintegrating 4 mg PO Q8H PRN (Reason: nausea and vomiting) 5 Days Qty: 15 0RF Discharge Orders: Discharge Order (Routine); Ordered 11/11/22 Ordered By: Cristohper Kwok Admission Data Admit Date/Time: 11/11/22 01:49 Attending Provider: Cristopher Cary Admit Provider: Juan J Tenorio Primary Care Provider: PCP,NO Other Providers: Camden Mejia Other Interventions: Discharge Summary Assessment (RN) Last Done: 11/11/22 13:34 Supervising Physician Co-Signing Physician Notes I personally examined the patient and verified all jalloh points of history and exam, discussed case, and agree with decision making with Dr Kwok feeling better feels up to going home vitals noted nad heent nc at mmm breathing unlabored no accessory muscles good effort skin no rashes no pallor or icterus paresthesia/AMS - all resolved. suspect combination of dehydration/residual effects from binge drinking the night before/heavy exertion +- some degree of hyperventilation --> improved. nothing requiring further inpatient stay. close outpt f/u - doubt any chronic/occult issues at play - but close follow up to elucidate if anything else going on - local PCP w [facility] ~2wks. pt to catalog symptoms (but noticeable and mundane) between now and then for f/u otherwise as above Resident Activity Tracking Resident Involvement: Resident Care Provided Care Provided: Adult Hospital Medicine
--- NOTE | 2022-11-11 14:44 | Billing Data ---
Date of Service November 11, 2022 Coding Level of Care Code HOSP INP/OBS DISCH 30 MIN/LESS
--- NOTE | 2022-11-12 03:10 | Billing Data ---
Date of Service November 12, 2022 Coding Level of Care Code 05737 INT INP/OBS CARE
[2022-11-12 07:09] LABS: Estimated Average Glucose 108 mg/dl; Hemoglobin A1C 5.4 % (4.5-5.6)
== END 2022-11-11 14:06 | disposition home or self-care (01) ==
LOC: ED 20:02 → SUATTDRO 11-11 01:49 → INTOOBSV 11-11 01:49 → 3N 11-11 01:49
DX: F17.200 Nicotine dependence, unspecified, uncomplicated; R11.2 Nausea with vomiting, unspecified; F10.288 Alcohol dependence with other alcohol-induced disorder; R41.82 Altered mental status, unspecified; E87.29 Other acidosis; E86.0 Dehydration; R20.2 Paresthesia of skin; Z20.822 Contact with and (suspected) exposure to COVID-19